=== PATIENT | male | born 1990 ===

== ENCOUNTER 2018-03-03 15:02 | Emergency (ER) | payer MEDICAID ==
[2018-03-03 15:03] VITALS: BMI 22.3
[2018-03-03 15:17] VITALS: BP 133/74; RESP 20; TEMP 98.3
--- NOTE | 2018-03-03 15:24 | C.PDOC ---
History Of Present Illness 27 year old male is brought into the emergency department by ambulance status- post being involved in an argument with his girlfriend over the phone when his neighbors notified the police. Upon arrival to his apartment, the police smelled marijuana and made the patient present to the ED for evaluation. No physical complaints. Patient denies physical altercation, drug/alcohol use today, SI/HI, hallucinations, delusions, fever, chills, chest pain, shortness of breath, abdominal pain, headache, or any other associated symptoms. Time Seen by Provider: 03/03/18 15:14 Chief Complaint (Nursing): Psychiatric Evaluation History Per: Patient History/Exam Limitations: no limitations Onset/Duration Of Symptoms: Hrs Current Symptoms Are (Timing): Gone Suicide/Self Injury Attempted (Context): None Modifying Factor(s): None Associated Symptoms: denies: Suicidal Thoughts, Suicidal Plan Past Medical History Reviewed: Historical Data, Nursing Documentation, Vital Signs Vital Signs: Last Vital Signs Temp 98.3 F 03/03/18 15:12 Pulse 102 H 03/03/18 15:12 Resp 20 03/03/18 15:12 BP 133/74 03/03/18 15:12 Pulse Ox 97 03/03/18 15:12 - Medical History PMH: Fractures (Left wrist and Right Ankle) Denies: Chronic Kidney Disease Other PMH: ADHD Surgical History: No Surg Hx Family History: States: Unknown Family Hx - Social History Hx Alcohol Use: No Hx Substance Use: Yes - Immunization History Hx Tetanus Toxoid Vaccination: No Hx Influenza Vaccination: No Hx Pneumococcal Vaccination: No Review Of Systems Except As Marked, All Systems Reviewed And Found Negative. Constitutional: Negative for: Fever, Chills Eyes: Negative for: Vision Change Cardiovascular: Negative for: Chest Pain, Palpitations, Light Headedness Respiratory: Negative for: Cough, Shortness of Breath Gastrointestinal: Negative for: Nausea, Vomiting, Abdominal Pain Genitourinary: Negative for: Dysuria, Frequency Musculoskeletal: Negative for: Neck Pain, Back Pain Skin: Negative for: Rash Neurological: Negative for: Weakness, Numbness, Headache, Dizziness Psych: Negative for: Anxiety, Depression, Psychosis, Suicidal ideation, Withdrawal Physical Exam - Physical Exam Appears: Well, Non-toxic, No Acute Distress Skin: Normal Color, Warm, Dry Head: Atraumatic, Normacephalic Eye(s): bilateral: Normal Inspection, PERRL, EOMI Nose: Normal Oral Mucosa: Moist Neck: Normal, Normal ROM, Supple Chest: Symmetrical, No Tenderness Cardiovascular: Rhythm Regular, No Murmur Respiratory: Normal Breath Sounds, No Rales, No Rhonchi, No Wheezing Gastrointestinal/Abdominal: Normal Exam, Bowel Sounds (normoactive), Soft, No Tenderness, No Guarding, No Rebound Back: Normal Inspection, No CVA Tenderness, No Muscle Spasm, No Paraspinal Tenderness Extremity: Normal ROM Extremity: Bilateral: Atraumatic Pulses: Left Radial: Normal, Right Radial: Normal (80 bpm on my exam) Neurological/Psych: Oriented x3, Normal Speech, Normal Cognition, Normal Motor, Normal Sensation Gait: Steady ED Course And Treatment O2 Sat by Pulse Oximetry: 97 (RA) Pulse Ox Interpretation: Normal Medical Decision Making Medical Decision Making: Initial Plan * Reassess and disposition Case discussed with Dr. Holland, who agrees with plan of care and disposition. Advised to discharge patient home in light of no physical or psychologic complaints and no acute findings on physical exam. Plan of care discussed with patient. Strict instructions given regarding importance of followup, prescription use, and signs/symptoms to return, including fever, chills, vision changes, eye pain, or any other new/worsening symptoms. Patients verbalized understanding of discussion. Patient ambulating with steady gait, A&Ox3, with vitals signs stable for discharge. Disposition Discussed With Dr.: Mariaelena Holland Counseled Patient/Family Regarding: Need For Followup, Smoking Cessation - Disposition Referrals: [facility] [Outside] Disposition: HOME/ ROUTINE Disposition Time: 15:30 Condition: STABLE Additional Instructions: Followup with primary doctor within 2 days Return to ER for any new/worsening symptoms Instructions: Marijuana Use and Addiction Forms: General Discharge Instructions, [facility] (Hungarian), Work Excuse - Clinical Impression Clinical Impression: Normal physical exam - PA / CLIENT ADMINISTRATOR / Resident Statement MD/DO has reviewed & agrees with the documentation as recorded. - Scribe Statement The provider has reviewed the documentation as recorded by the Scribe (Jerry Cruz) All medical record entries made by the Scribe were at my direction and personally dictated by me. I have reviewed the chart and agree that the record accurately reflects my personal performance of the history, physical exam, medical decision making, and the department course for this patient. I have also personally directed, reviewed, and agree with the discharge instructions and disposition.
[2018-03-03 15:37] VITALS: PULSE 100
[2018-03-03 19:25] VITALS: O2SAT 97
== END 2018-03-03 15:37 | disposition home or self-care (01) ==
LOC: C.ER 15:02
DX: Z00.00 Encounter for general adult medical examination without abnormal findings (principal)